=== PATIENT | female | born 1930 | race Caucasian/White ===

== ENCOUNTER 2017-01-30 12:03 | Emergency (ER) | payer MEDICAID, MEDICARE ==
[~2017-01-30] VITALS: Ht 162.6 cm; Wt 74.8 kg
[2017-01-30] MEDS ORDERED: ASPI-496 PO (13:18)
[2017-01-30] MEDS ORDERED: SIMV20TA3 PO (13:18)
[2017-01-30] MEDS ORDERED: DOXY100C15 PO (13:18)
[2017-01-30] MEDS ORDERED: FLUT1DIS3 INH (13:18)
[2017-01-30] MEDS ORDERED: TRAM50TA2 PO (13:18)
[2017-01-30] MEDS ORDERED: TIOT18CA INH (13:18)
[2017-01-30] MEDS ORDERED: AMOX1TAB64 PO (13:18)
[2017-01-30 15:24] VITALS: BP 142/87
== END 2017-01-30 16:01 | disposition home or self-care (01) ==
LOC: ED 15:55
DX: K40.91 Unilateral inguinal hernia, without obstruction or gangrene, recurrent (principal); E78.00 Pure hypercholesterolemia, unspecified; I25.2 Old myocardial infarction
CPT/HCPCS: 76857; 81003; 99285

== ENCOUNTER 2017-03-27 11:04 | Inpatient (IN) | payer MEDICARE ==
[~2017-03-27] VITALS: Ht 175.3 cm; Wt 75.2 kg
[~2017-03-27 11:04] MED LIST: AMOX1TAB64 PO; ASPI-496 PO; DOXY100C15 PO; FLUT1DIS3 INH; SIMV20TA3 PO; TIOT18CA INH; TRAM50TA2 PO
[2017-03-27] MEDS ORDERED: SODIUM CHLORIDE FLUSH 10ML SYR IVF ONE (12:00)
[2017-03-27] MEDS ORDERED: ASPIRIN 81 MG TABLET CHEW PO ONE (12:00)
[2017-03-27] MEDS ORDERED: ASPIRIN 81 MG TABLET CHEW ONE (12:03)
[2017-03-27] MEDS ORDERED: CEFTRIAXONE PMX 1GM/50ML 50 ML IVPB ONE (12:30)
[2017-03-27] MEDS ORDERED: AZITHROMYCIN 500 MG in SODIUM CHLORIDE 0.9% 250 ML IV ONE (12:30)
[2017-03-27 12:39] LABS: ASPARTATE AMINO TRANSFERASE 20 U/L (15-37); BLOOD UREA NITROGEN 17 mg/dL (7-18)
[2017-03-27 12:44] LABS: IS PT STATUS REG ER OR PRE ER? YES
[2017-03-27] MEDS ORDERED: CEFTRIAXONE PMX 1GM/50ML 50 ML ONE (13:24)
[2017-03-27 13:34] LABS: PATH.CAST-FLAG NOT PRESENT; SPERM-FLAG NOT PRESENT; SRC-FLAG NOT PRESENT; XTAL-FLAG NOT PRESENT; YLC-FLAG NOT PRESENT
[2017-03-27] MEDS ORDERED: OMNIPAQUE 350 MG/ML, 100ML BOTTLE ONE (15:22)
[2017-03-27] MEDS ORDERED: ENOXAPARIN 40 MG/0.4 ML SQ SCH (15:30)
[2017-03-27] MEDS ORDERED: POLYETHYLENE GLYCOL 17 GM PACKET PO PRN (15:30)
[2017-03-27] MEDS ORDERED: ACETAMINOPHEN 325 MG TABLET PO PRN (15:30)
[2017-03-27] MEDS ORDERED: CEFTRIAXONE PMX 1GM/50ML 50 ML IV SCH (15:30)
[2017-03-27] MEDS ORDERED: morphine SULFATE 10 MG/ML, 1ML IVPush PRN (15:30)
[2017-03-27] MEDS ORDERED: DOCUSATE 100 MG CAPSULE PO PRN (15:30)
[2017-03-27] MEDS ORDERED: DOXYCYCLINE 100 MG in DEXTROSE 5% 250 ML IV SCH (15:30)
[2017-03-27] MEDS ORDERED: GUAIFENESIN/DM 200-20MG, 10ML UDC PO PRN (15:30)
[2017-03-27] MEDS ORDERED: ONDANSETRON 2MG/ML, 2ML IVPush PRN (15:30)
[2017-03-27] MEDS: IPRATROPIUM 0.5 MG/2.5 ML INHA NPPB SCH ×2 (16:30→22:30)
[2017-03-27 17:06] VITALS: BP 90/62
[2017-03-27 17:44] LABS: IS PT STATUS REG ER OR PRE ER? NO
[2017-03-27] MEDS: APIXABAN 2.5 MG TABLET PO SCH ×2 (18:15→19:42)
[2017-03-27] MEDS: NS + 20MEQ KCL 1,000 ML IV SCH (19:41)
[2017-03-27 20:00] VITALS: BP 100/60
[2017-03-27] MEDS: SIMVASTATIN 20 MG TABLET PO SCH (20:05)
[2017-03-28 00:05] LABS: IS PT STATUS REG ER OR PRE ER? NO
[2017-03-28 02:00] VITALS: BP 118/74
[2017-03-28] MEDS: IPRATROPIUM 0.5 MG/2.5 ML INHA NPPB SCH ×4 (02:04→19:39)
[2017-03-28] MEDS: SENNA/DOCUSATE TABLET PO SCH (08:24)
[2017-03-28] MEDS: APIXABAN 2.5 MG TABLET PO SCH ×2 (08:25→21:17)
[2017-03-28] MEDS: ASPIRIN 81 MG TABLET EC PO SCH (08:25)
[2017-03-28 09:24] VITALS: BP 126/77
[2017-03-28 14:22] VITALS: BP 124/70
[2017-03-28] MEDS: FLUTICASONE/VILANTEROL 200-25MCG/INH INH SCH (15:15)
[2017-03-28 18:27] VITALS: BP 111/76
[2017-03-28 19:00] VITALS: BP 107/63
[2017-03-28] MEDS: SIMVASTATIN 20 MG TABLET PO SCH (21:17)
[2017-03-28] MEDS: NS + 20MEQ KCL 1,000 ML IV SCH (21:17)
[2017-03-29 02:00] VITALS: BP 121/80
[2017-03-29] MEDS: IPRATROPIUM 0.5 MG/2.5 ML INHA NPPB SCH ×3 (04:02→19:53)
[2017-03-29] MEDS: SENNA/DOCUSATE TABLET PO SCH (07:40)
[2017-03-29] MEDS: APIXABAN 2.5 MG TABLET PO SCH ×2 (07:46→20:38)
[2017-03-29] MEDS: FLUTICASONE/VILANTEROL 200-25MCG/INH INH SCH (07:46)
[2017-03-29] MEDS: ASPIRIN 81 MG TABLET EC PO SCH (07:46)
[2017-03-29 07:47] VITALS: BP 121/81
[2017-03-29 14:33] VITALS: BP 103/68
[2017-03-29 16:54] VITALS: BP 117/80
[2017-03-29] MEDS: NS + 20MEQ KCL 1,000 ML IV SCH (19:16)
[2017-03-29 19:27] VITALS: BP 125/86
[2017-03-29] MEDS: SIMVASTATIN 20 MG TABLET PO SCH (20:39)
[2017-03-30 03:44] VITALS: BP 149/90
[2017-03-30 08:45] VITALS: BP 146/94
[2017-03-30] MEDS: IPRATROPIUM 0.5 MG/2.5 ML INHA NPPB SCH ×2 (10:05→19:56)
[2017-03-30] MEDS: FLUTICASONE/VILANTEROL 200-25MCG/INH INH SCH (10:45)
[2017-03-30] MEDS: APIXABAN 2.5 MG TABLET PO SCH ×2 (10:45→20:45)
[2017-03-30] MEDS: ASPIRIN 81 MG TABLET EC PO SCH (10:45)
[2017-03-30] MEDS: SENNA/DOCUSATE TABLET PO SCH (10:46)
[2017-03-30 13:50] VITALS: BP 129/79
[2017-03-30 14:00] VITALS: BP_SYST 129; BP_SYST 138; BP_DIAS 67; BP_DIAS 79
[2017-03-30 20:06] VITALS: BP 118/64
[2017-03-30] MEDS: SIMVASTATIN 20 MG TABLET PO SCH (20:45)
[2017-03-31 01:12] VITALS: BP 132/77
[2017-03-31 07:25] VITALS: BP 151/94
[2017-03-31] MEDS: IPRATROPIUM 0.5 MG/2.5 ML INHA NPPB SCH (08:32)
[2017-03-31] MEDS: SENNA/DOCUSATE TABLET PO SCH (09:10)
[2017-03-31] MEDS: FLUTICASONE/VILANTEROL 200-25MCG/INH INH SCH (09:10)
[2017-03-31] MEDS: APIXABAN 2.5 MG TABLET PO SCH ×2 (09:10→22:01)
[2017-03-31] MEDS: ASPIRIN 81 MG TABLET EC PO SCH (09:10)
[2017-03-31 14:30] VITALS: BP 121/64
[2017-03-31] MEDS: HYDROcodone/APAP 5/325 TABLET PO PRN (14:58)
[2017-03-31] MEDS ORDERED: APIX2.5T PO (15:51)
[2017-03-31 18:28] VITALS: BP 115/77
[2017-03-31] MEDS: SIMVASTATIN 20 MG TABLET PO SCH (22:02)
[2017-04-01 01:44] VITALS: BP 148/81
[2017-04-01] MEDS: HYDROcodone/APAP 5/325 TABLET PO PRN (05:32)
[2017-04-01] MEDS: ASPIRIN 81 MG TABLET EC PO SCH (10:38)
[2017-04-01] MEDS: FLUTICASONE/VILANTEROL 200-25MCG/INH INH SCH (10:38)
[2017-04-01] MEDS: SENNA/DOCUSATE TABLET PO SCH (10:38)
[2017-04-01] MEDS: APIXABAN 2.5 MG TABLET PO SCH (10:38)
[2017-04-01 14:01] VITALS: BP 125/78
== END 2017-04-01 14:31 | DRG 175 ==
LOC: ED 13:36 → EDIP 14:59 → SUATTDRO 15:04 → 5SO 16:10 → 3NE 03-29 16:51
PROVIDERS: ADMIT Family Medicine; ATTEND Family Medicine
DX: I26.99 Other pulmonary embolism without acute cor pulmonale (principal); J18.1 Lobar pneumonia, unspecified organism; E44.0 Moderate protein-calorie malnutrition; J44.0 Chronic obstructive pulmonary disease with (acute) lower respiratory infection; R15.9 Full incontinence of feces; E78.5 Hyperlipidemia, unspecified; E78.00 Pure hypercholesterolemia, unspecified; F43.25 Adjustment disorder with mixed disturbance of emotions and conduct; K44.9 Diaphragmatic hernia without obstruction or gangrene; G31.84 Mild cognitive impairment of uncertain or unknown etiology; H91.90 Unspecified hearing loss, unspecified ear; I10 Essential (primary) hypertension; I25.2 Old myocardial infarction; Z79.82 Long term (current) use of aspirin; Z87.891 Personal history of nicotine dependence; Z99.3 Dependence on wheelchair; Z88.8 Allergy status to other drugs, medicaments and biological substances
CPT/HCPCS: 36415; 71010; 71275; 80053; 80061; 81001; 83605; 84484; 85025; 85379; 87040; 87086; 93005; 93306; 93970; 94640; 99285; J0456; J0696; J3480; J7644; Q9967; 92523-GN; J7050

== ENCOUNTER 2017-04-14 19:03 | Inpatient (IN) | payer MEDICARE ==
[~2017-04-14] VITALS: Ht 165.1 cm; Wt 79.4 kg
[~2017-04-14 19:03] MED LIST changes: +APIX2.5T PO
[2017-04-14] MEDS ORDERED: OMNIPAQUE 350 MG/ML, 100ML BOTTLE ONE (19:28)
[2017-04-14] MEDS ORDERED: SODIUM CHLORIDE 0.9% 1,000ML IVBOLUS ONE (19:30)
[2017-04-14] MEDS ORDERED: SODIUM CHLORIDE FLUSH 10ML SYR IVF ONE (19:30)
[2017-04-14 20:13] LABS: BLOOD UREA NITROGEN 67 mg/dL (7-18)
[2017-04-14 20:19] LABS: ASPARTATE AMINO TRANSFERASE 21 U/L (15-37)
[2017-04-14 20:22] LABS: IS PT STATUS REG ER OR PRE ER? YES
[2017-04-14] MEDS ORDERED: SODIUM CHLORIDE 0.9% 1,000 ML IV ONE (20:31)
[2017-04-14 20:36] LABS: DIFF TOTAL CELLS COUNTED 100 CELL DIFF
[2017-04-14 20:38] LABS: VERIFY COUNTS? YES
[2017-04-14] MEDS ORDERED: BISACODYL 10 MG SUPP PR PRN (22:00)
[2017-04-14] MEDS ORDERED: ONDANSETRON 2MG/ML, 2ML IVPush PRN (22:00)
[2017-04-14] MEDS ORDERED: HEPARIN 5,000 UNITS/ML, 1ML SQ SCH (22:00)
[2017-04-14] MEDS ORDERED: ACETAMINOPHEN 325 MG TABLET PO PRN (22:00)
[2017-04-14] MEDS ORDERED: POLYETHYLENE GLYCOL 17 GM PACKET PO PRN (22:00)
[2017-04-14] MEDS: SIMVASTATIN 20 MG TABLET PO SCH (22:00)
[2017-04-14] MEDS ORDERED: ONDANSETRON 2MG/ML, 2ML ONE (22:03)
[2017-04-14] MEDS: SODIUM CHLORIDE 0.9% 1,000 ML IV SCH (22:07)
[2017-04-14] MEDS: [UNRECOGNIZED DRUG - REMARK] MC SCH (23:30)
[2017-04-15] VITALS: BP 101/69
[2017-04-15] MEDS: APIXABAN 2.5 MG TABLET PO SCH ×3 (01:08→22:45)
[2017-04-15] MEDS: SODIUM CHLORIDE 0.9% 1,000 ML IV SCH ×2 (01:09→16:04)
[2017-04-15 03:03] VITALS: BP 107/75
[2017-04-15 05:19] LABS: ASPARTATE AMINO TRANSFERASE 13 U/L (15-37); BLOOD UREA NITROGEN 69 mg/dL (7-18)
[2017-04-15] MEDS: METRONIDAZOLE PMX 500MG/100ML 100 ML IV SCH ×2 (06:27→16:04)
[2017-04-15 06:29] VITALS: BP 102/69
[2017-04-15] MEDS: [UNRECOGNIZED DRUG - REMARK] MC SCH ×2 (07:30→15:30)
[2017-04-15] MEDS: IPRATROPIUM 0.5 MG/2.5 ML INHA NPPB SCH ×3 (09:00→21:00)
[2017-04-15] MEDS: SENNA/DOCUSATE TABLET PO SCH (09:00)
[2017-04-15] MEDS: FLUTICASONE/VILANTEROL 100-25MCG/INH INH SCH (09:00)
[2017-04-15 12:43] VITALS: BP 109/81
[2017-04-15] MEDS: VANCOMYCIN 50 MG/ML ORAL SUSP PO SCH ×2 (16:03→22:44)
[2017-04-15 19:08] VITALS: BP 95/66
[2017-04-15] MEDS ORDERED: BISACODYL 10 MG SUPP PR PRN (20:00)
[2017-04-15] MEDS ORDERED: ONDANSETRON 2MG/ML, 2ML IVPush PRN (20:00)
[2017-04-15] MEDS ORDERED: ACETAMINOPHEN 325 MG TABLET PO PRN (20:00)
[2017-04-15] MEDS ORDERED: POLYETHYLENE GLYCOL 17 GM PACKET PO PRN (20:00)
[2017-04-15] MEDS: SIMVASTATIN 20 MG TABLET PO SCH (22:45)
[2017-04-16] MEDS: METRONIDAZOLE PMX 500MG/100ML 100 ML IV SCH ×4 (01:02→23:00)
[2017-04-16] MEDS: SODIUM CHLORIDE 0.9% 1,000 ML IV SCH ×3 (01:03→19:11)
[2017-04-16 02:25] VITALS: BP_SYST 149; BP_SYST 80; BP_DIAS 56; BP_DIAS 71
[2017-04-16] MEDS: IPRATROPIUM 0.5 MG/2.5 ML INHA NPPB SCH ×4 (03:00→21:00)
[2017-04-16] MEDS: VANCOMYCIN 50 MG/ML ORAL SUSP PO SCH ×4 (05:07→21:22)
[2017-04-16 06:30] LABS: BLOOD UREA NITROGEN 70 mg/dL (7-18)
[2017-04-16 08:13] VITALS: BP 90/60
[2017-04-16] MEDS: SENNA/DOCUSATE TABLET PO SCH (08:14)
[2017-04-16] MEDS: APIXABAN 2.5 MG TABLET PO SCH ×2 (08:21→21:22)
[2017-04-16] MEDS: FLUTICASONE/VILANTEROL 100-25MCG/INH INH SCH (09:38)
[2017-04-16 13:00] VITALS: BP 94/66
[2017-04-16 20:27] VITALS: BP 106/73
[2017-04-16] MEDS: SIMVASTATIN 20 MG TABLET PO SCH (21:22)
[2017-04-17 00:21] VITALS: BP 100/63
[2017-04-17] MEDS: IPRATROPIUM 0.5 MG/2.5 ML INHA NPPB SCH ×4 (02:53→20:11)
[2017-04-17] MEDS: VANCOMYCIN 50 MG/ML ORAL SUSP PO SCH ×3 (03:54→17:59)
[2017-04-17] MEDS: SODIUM CHLORIDE 0.9% 1,000 ML IV SCH (03:54)
[2017-04-17 06:01] LABS: BLOOD UREA NITROGEN 69 mg/dL (7-18)
[2017-04-17 07:30] VITALS: BP 97/60
[2017-04-17] MEDS: SENNA/DOCUSATE TABLET PO SCH (08:33)
[2017-04-17] MEDS: FLUTICASONE/VILANTEROL 100-25MCG/INH INH SCH (08:37)
[2017-04-17] MEDS: METRONIDAZOLE PMX 500MG/100ML 100 ML IV SCH ×2 (08:37→17:59)
[2017-04-17] MEDS: APIXABAN 2.5 MG TABLET PO SCH ×2 (08:37→20:32)
[2017-04-17] MEDS: LACTATED RINGERS 1,000 ML IV SCH ×2 (11:29→22:13)
[2017-04-17] MEDS: SODIUM BICARBONATE 650 MG TABLET PO SCH ×2 (11:29→20:32)
[2017-04-17 12:16] VITALS: BP 91/64
[2017-04-17 13:52] VITALS: BP 105/72
[2017-04-17 20:00] VITALS: BP 117/68
[2017-04-17] MEDS: SIMVASTATIN 20 MG TABLET PO SCH (20:32)
[2017-04-18] MEDS: VANCOMYCIN 50 MG/ML ORAL SUSP PO SCH ×4 (00:09→17:40)
[2017-04-18] MEDS: METRONIDAZOLE PMX 500MG/100ML 100 ML IV SCH ×3 (01:11→17:40)
[2017-04-18 02:00] VITALS: BP 94/63
[2017-04-18] MEDS: IPRATROPIUM 0.5 MG/2.5 ML INHA NPPB SCH ×4 (03:00→19:52)
[2017-04-18 06:08] LABS: BLOOD UREA NITROGEN 63 mg/dL (7-18)
[2017-04-18 08:53] VITALS: BP 118/61
[2017-04-18] MEDS: SENNA/DOCUSATE TABLET PO SCH (09:00)
[2017-04-18] MEDS ORDERED: MAGNESIUM SULFATE PMX 2GM/50ML 50 ML IV ONE (09:30)
[2017-04-18] MEDS: ONDANSETRON 2MG/ML, 2ML IVPush PRN (09:38)
[2017-04-18 10:54] VITALS: BP 131/91
[2017-04-18] MEDS ORDERED: FUROSEMIDE 40 MG/4 ML IV ONE (11:00)
[2017-04-18] MEDS: FLUTICASONE/VILANTEROL 100-25MCG/INH INH SCH (11:23)
[2017-04-18] MEDS: APIXABAN 2.5 MG TABLET PO SCH ×2 (11:23→20:38)
[2017-04-18] MEDS: SODIUM BICARBONATE 650 MG TABLET PO SCH ×2 (11:24→20:38)
[2017-04-18 12:35] VITALS: BP 95/63
[2017-04-18] MEDS: methylPREDNISolone SOD SUCC 125 MG/2 ML IVPush SCH ×2 (13:07→20:38)
[2017-04-18] MEDS: CEFTRIAXONE PMX 1GM/50ML 50 ML IV SCH (13:08)
[2017-04-18 20:05] VITALS: BP 102/68
[2017-04-18] MEDS: SIMVASTATIN 20 MG TABLET PO SCH (20:38)
[2017-04-18] MEDS ORDERED: LIDOCAINE 1%, 20ML ONE (20:54)
[2017-04-19] MEDS: METRONIDAZOLE PMX 500MG/100ML 100 ML IV SCH ×3 (00:55→18:47)
[2017-04-19] MEDS: VANCOMYCIN 50 MG/ML ORAL SUSP PO SCH ×5 (00:55→23:49)
[2017-04-19 02:57] VITALS: BP 144/85
[2017-04-19] MEDS: IPRATROPIUM 0.5 MG/2.5 ML INHA NPPB SCH ×5 (03:00→21:30)
[2017-04-19 05:28] LABS: BLOOD UREA NITROGEN 60 mg/dL (7-18)
[2017-04-19 08:22] VITALS: BP 135/87
[2017-04-19] MEDS: SENNA/DOCUSATE TABLET PO SCH (09:00)
[2017-04-19] MEDS: FLUTICASONE/VILANTEROL 100-25MCG/INH INH SCH (09:00)
[2017-04-19 12:52] VITALS: BP 115/76
[2017-04-19] MEDS: SODIUM BICARBONATE 650 MG TABLET PO SCH ×2 (13:16→20:11)
[2017-04-19] MEDS: APIXABAN 2.5 MG TABLET PO SCH ×2 (13:16→20:11)
[2017-04-19] MEDS: CEFTRIAXONE PMX 1GM/50ML 50 ML IV SCH (13:16)
[2017-04-19] MEDS ORDERED: methylPREDNISolone SOD SUCC 125 MG/2 ML IVPush SCH (18:30)
[2017-04-19 19:45] VITALS: BP 111/77
[2017-04-19] MEDS: methylPREDNISolone SOD SUCC 40 MG/ML IVPush SCH (20:10)
[2017-04-19] MEDS: SIMVASTATIN 20 MG TABLET PO SCH (20:11)
[2017-04-19 22:17] LABS: ABG COLLECTION SITE RIGHT RADIAL; COLLATERAL CIRCULATION TESTING NORMAL
[2017-04-20] MEDS: METRONIDAZOLE PMX 500MG/100ML 100 ML IV SCH ×2 (02:35→14:13)
[2017-04-20 03:08] VITALS: BP 119/74
[2017-04-20] MEDS: IPRATROPIUM 0.5 MG/2.5 ML INHA NPPB SCH ×4 (03:30→20:45)
[2017-04-20] MEDS ORDERED: ALBUTEROL/IPRATROPIUM 2.5MG/0.5MG, 3 ML ONE (03:34)
[2017-04-20] MEDS: methylPREDNISolone SOD SUCC 40 MG/ML IVPush SCH ×3 (04:24→22:48)
[2017-04-20] MEDS: VANCOMYCIN 50 MG/ML ORAL SUSP PO SCH ×4 (05:45→23:30)
[2017-04-20 06:56] LABS: BLOOD UREA NITROGEN 57 mg/dL (7-18)
[2017-04-20 07:05] LABS: DIFF TOTAL CELLS COUNTED 100 CELL DIFF
[2017-04-20 07:30] VITALS: BP 122/77
[2017-04-20 07:47] LABS: VERIFY COUNTS? YES
[2017-04-20] MEDS: SENNA/DOCUSATE TABLET PO SCH (09:00)
[2017-04-20] MEDS: FLUTICASONE/VILANTEROL 100-25MCG/INH INH SCH (09:00)
[2017-04-20] MEDS: APIXABAN 2.5 MG TABLET PO SCH ×2 (09:40→20:58)
[2017-04-20] MEDS: SODIUM BICARBONATE 650 MG TABLET PO SCH ×2 (09:40→20:59)
[2017-04-20] MEDS: CEFTRIAXONE PMX 1GM/50ML 50 ML IV SCH (14:13)
[2017-04-20 14:55] VITALS: BP 116/81
[2017-04-20] MEDS: DOXYCYCLINE 100 MG in DEXTROSE 5% 250 ML IV SCH (16:30)
[2017-04-20 19:50] VITALS: BP 106/65
[2017-04-20] MEDS: SIMVASTATIN 20 MG TABLET PO SCH (21:00)
[2017-04-21 01:29] VITALS: BP 112/69
[2017-04-21] MEDS: IPRATROPIUM 0.5 MG/2.5 ML INHA NPPB SCH ×4 (02:36→19:45)
[2017-04-21] MEDS: VANCOMYCIN 50 MG/ML ORAL SUSP PO SCH ×3 (05:26→17:30)
[2017-04-21] MEDS: methylPREDNISolone SOD SUCC 40 MG/ML IVPush SCH ×2 (05:32→15:07)
[2017-04-21] MEDS: DOXYCYCLINE 100 MG in DEXTROSE 5% 250 ML IV SCH ×2 (05:32→16:30)
[2017-04-21 05:51] LABS: BLOOD UREA NITROGEN 56 mg/dL (7-18)
[2017-04-21 07:15] VITALS: BP 131/87
[2017-04-21] MEDS: APIXABAN 2.5 MG TABLET PO SCH ×2 (09:00→20:44)
[2017-04-21] MEDS: SENNA/DOCUSATE TABLET PO SCH (09:00)
[2017-04-21] MEDS: FLUTICASONE/VILANTEROL 100-25MCG/INH INH SCH (09:00)
[2017-04-21] MEDS: SODIUM BICARBONATE 650 MG TABLET PO SCH ×2 (09:00→20:44)
[2017-04-21 09:57] LABS: ABG COLLECTION SITE RIGHT BRACHIAL
[2017-04-21] MEDS: CEFTRIAXONE PMX 1GM/50ML 50 ML IV SCH (11:00)
[2017-04-21 14:08] VITALS: BP 122/85
[2017-04-21] MEDS ORDERED: POTASSIUM CHLORIDE 40 MEQ in SODIUM CHLORIDE 0.9% 500 ML IV ONE (14:30)
[2017-04-21 20:32] VITALS: BP 121/75
[2017-04-21] MEDS: DOXYCYCLINE 100MG TABLET PO SCH (20:44)
[2017-04-21] MEDS: SIMVASTATIN 20 MG TABLET PO SCH (20:44)
[2017-04-22] MEDS: VANCOMYCIN 50 MG/ML ORAL SUSP PO SCH ×5 (00:07→22:53)
[2017-04-22] MEDS: methylPREDNISolone SOD SUCC 40 MG/ML IVPush SCH ×3 (00:07→16:58)
[2017-04-22] MEDS: IPRATROPIUM 0.5 MG/2.5 ML INHA NPPB SCH ×4 (02:25→19:46)
[2017-04-22 03:19] VITALS: BP 122/80
[2017-04-22 05:01] LABS: BLOOD UREA NITROGEN 58 mg/dL (7-18)
[2017-04-22 06:20] VITALS: BP 118/72
[2017-04-22] MEDS: SODIUM BICARBONATE 650 MG TABLET PO SCH ×2 (08:48→21:02)
[2017-04-22] MEDS: FLUTICASONE/VILANTEROL 100-25MCG/INH INH SCH (08:48)
[2017-04-22] MEDS: DOXYCYCLINE 100MG TABLET PO SCH ×2 (08:48→21:02)
[2017-04-22] MEDS: SENNA/DOCUSATE TABLET PO SCH (08:49)
[2017-04-22] MEDS: APIXABAN 2.5 MG TABLET PO SCH ×2 (09:00→21:02)
[2017-04-22] MEDS: CEFTRIAXONE PMX 1GM/50ML 50 ML IV SCH (11:43)
[2017-04-22] MEDS ORDERED: MAGNESIUM SULFATE PMX 2GM/50ML 50 ML IV ONE (13:30)
[2017-04-22 14:49] VITALS: BP 109/66
[2017-04-22] MEDS ORDERED: FUROSEMIDE 40 MG/4 ML IV STA (15:07)
[2017-04-22] MEDS ORDERED: FUROSEMIDE 40 MG/4 ML ONE (15:09)
[2017-04-22] MEDS: ONDANSETRON 2MG/ML, 2ML IVPush PRN ×2 (16:58→22:53)
[2017-04-22] MEDS ORDERED: LIDOCAINE 1%, 20ML ONE (17:14)
[2017-04-22 18:48] VITALS: BP 113/70
[2017-04-22] MEDS ORDERED: DILTIAZEM 5 MG/ML, 5ML IVPush ONE (19:30)
[2017-04-22] MEDS: SIMVASTATIN 20 MG TABLET PO SCH (21:02)
[2017-04-23 01:22] VITALS: BP 114/77
[2017-04-23] MEDS: methylPREDNISolone SOD SUCC 40 MG/ML IVPush SCH ×3 (01:53→17:03)
[2017-04-23] MEDS: IPRATROPIUM 0.5 MG/2.5 ML INHA NPPB SCH ×3 (02:31→08:42)
[2017-04-23] MEDS: VANCOMYCIN 50 MG/ML ORAL SUSP PO SCH ×3 (06:20→17:03)
[2017-04-23 06:21] LABS: BLOOD UREA NITROGEN 60 mg/dL (7-18)
[2017-04-23 07:16] VITALS: BP 114/70
[2017-04-23] MEDS: FLUTICASONE/VILANTEROL 100-25MCG/INH INH SCH (08:22)
[2017-04-23] MEDS: DOXYCYCLINE 100MG TABLET PO SCH ×2 (08:22→22:08)
[2017-04-23] MEDS: SENNA/DOCUSATE TABLET PO SCH (08:22)
[2017-04-23] MEDS: APIXABAN 2.5 MG TABLET PO SCH ×2 (08:22→22:08)
[2017-04-23] MEDS: SODIUM BICARBONATE 650 MG TABLET PO SCH ×2 (08:22→22:07)
[2017-04-23] MEDS ORDERED: DILTIAZEM 5 MG/ML, 5ML ONE (09:36)
[2017-04-23] MEDS ORDERED: ALBUTEROL/IPRATROPIUM 2.5MG/0.5MG, 3 ML ONE (09:50)
[2017-04-23] MEDS: ALBUTEROL/IPRATROPIUM 2.5MG/0.5MG, 3 ML NPPB SCH ×3 (09:55→19:51)
[2017-04-23] MEDS ORDERED: DILTIAZEM 5 MG/ML, 5ML IVPush ONE (10:00)
[2017-04-23] MEDS: CEFTRIAXONE PMX 1GM/50ML 50 ML IV SCH (11:09)
[2017-04-23 12:12] LABS: IS PT STATUS REG ER OR PRE ER? NO
[2017-04-23 13:40] VITALS: BP 99/65
[2017-04-23 16:31] LABS: IS PT STATUS REG ER OR PRE ER? NO
[2017-04-23 18:27] VITALS: BP 95/62
[2017-04-23 21:38] LABS: IS PT STATUS REG ER OR PRE ER? NO
[2017-04-23] MEDS: SIMVASTATIN 20 MG TABLET PO SCH (22:08)
[2017-04-23 23:23] VITALS: BP 101/66
[2017-04-24] MEDS: methylPREDNISolone SOD SUCC 40 MG/ML IVPush SCH ×4 (00:13→23:45)
[2017-04-24] MEDS: VANCOMYCIN 50 MG/ML ORAL SUSP PO SCH ×4 (00:14→20:53)
[2017-04-24 01:24] VITALS: BP 101/67
[2017-04-24 06:23] LABS: BLOOD UREA NITROGEN 55 mg/dL (7-18)
[2017-04-24 07:56] VITALS: BP 135/80
[2017-04-24] MEDS: SODIUM BICARBONATE 650 MG TABLET PO SCH ×2 (08:14→20:54)
[2017-04-24] MEDS: DOXYCYCLINE 100MG TABLET PO SCH (08:14)
[2017-04-24] MEDS: APIXABAN 2.5 MG TABLET PO SCH ×2 (08:14→20:53)
[2017-04-24] MEDS: FLUTICASONE/VILANTEROL 100-25MCG/INH INH SCH (08:15)
[2017-04-24] MEDS: SENNA/DOCUSATE TABLET PO SCH (08:16)
[2017-04-24] MEDS: ALBUTEROL/IPRATROPIUM 2.5MG/0.5MG, 3 ML NPPB SCH ×4 (09:00→19:47)
[2017-04-24] MEDS ORDERED: FUROSEMIDE 20 MG/2 ML IV SCH (11:00)
[2017-04-24] MEDS ORDERED: OMNIPAQUE 350 MG/ML, 150 ML BOTTLE ONE (12:44)
[2017-04-24] MEDS: CEFTRIAXONE PMX 1GM/50ML 50 ML IV SCH (12:54)
[2017-04-24 12:57] VITALS: BP 108/58
[2017-04-24 14:51] VITALS: BP 94/65
[2017-04-24] MEDS: CHOLESTYRAMINE 4GM PACKET PO SCH ×2 (16:44→20:54)
[2017-04-24] MEDS: LACTOBACILLUS CHEW TABLET PO SCH ×2 (16:44→20:53)
[2017-04-24 20:03] VITALS: BP 80/60
[2017-04-24] MEDS: FUROSEMIDE 20 MG/2 ML IV SCH (20:53)
[2017-04-24] MEDS: SIMVASTATIN 20 MG TABLET PO SCH (20:54)
[2017-04-24] MEDS ORDERED: CHOLESTYRAMINE 4GM PACKET PO SCH (21:00)
[2017-04-25 01:38] VITALS: BP 106/69
[2017-04-25] MEDS: VANCOMYCIN 50 MG/ML ORAL SUSP PO SCH ×4 (03:13→21:34)
[2017-04-25] MEDS: LACTOBACILLUS CHEW TABLET PO SCH ×4 (06:04→21:32)
[2017-04-25 06:13] LABS: ASPARTATE AMINO TRANSFERASE 15 U/L (15-37); BLOOD UREA NITROGEN 60 mg/dL (7-18)
[2017-04-25 06:55] VITALS: BP 100/72
[2017-04-25] MEDS: ALBUTEROL/IPRATROPIUM 2.5MG/0.5MG, 3 ML NPPB SCH ×4 (07:35→20:00)
[2017-04-25] MEDS: SENNA/DOCUSATE TABLET PO SCH (08:16)
[2017-04-25] MEDS: methylPREDNISolone SOD SUCC 40 MG/ML IVPush SCH ×2 (08:26→21:34)
[2017-04-25] MEDS: FLUTICASONE/VILANTEROL 100-25MCG/INH INH SCH (08:26)
[2017-04-25] MEDS: SODIUM BICARBONATE 650 MG TABLET PO SCH ×2 (08:27→21:32)
[2017-04-25] MEDS: APIXABAN 2.5 MG TABLET PO SCH ×2 (08:27→21:32)
[2017-04-25] MEDS: FUROSEMIDE 20 MG/2 ML IV SCH ×2 (08:27→21:33)
[2017-04-25] MEDS: CHOLESTYRAMINE 4GM PACKET PO SCH ×2 (10:18→21:00)
[2017-04-25 15:34] VITALS: BP 107/70
[2017-04-25 18:44] VITALS: BP 117/75
[2017-04-25] MEDS: SIMVASTATIN 20 MG TABLET PO SCH (21:32)
[2017-04-26 01:04] VITALS: BP 99/65
[2017-04-26] MEDS: VANCOMYCIN 50 MG/ML ORAL SUSP PO SCH ×3 (02:59→15:12)
[2017-04-26] MEDS: LACTOBACILLUS CHEW TABLET PO SCH ×4 (05:27→21:31)
[2017-04-26 06:39] LABS: ASPARTATE AMINO TRANSFERASE 9 U/L (15-37); BLOOD UREA NITROGEN 55 mg/dL (7-18)
[2017-04-26 07:29] VITALS: BP 113/80
[2017-04-26] MEDS: ALBUTEROL/IPRATROPIUM 2.5MG/0.5MG, 3 ML NPPB SCH ×5 (07:37→20:00)
[2017-04-26] MEDS: methylPREDNISolone SOD SUCC 40 MG/ML IVPush SCH (08:00)
[2017-04-26] MEDS ORDERED: MAGNESIUM SULFATE PMX 4GM/100M 100 ML IV ONE (08:30)
[2017-04-26] MEDS: SODIUM BICARBONATE 650 MG TABLET PO SCH (09:00)
[2017-04-26] MEDS: SENNA/DOCUSATE TABLET PO SCH (09:00)
[2017-04-26] MEDS: FUROSEMIDE 20 MG/2 ML IV SCH (09:00)
[2017-04-26] MEDS ORDERED: FUROSEMIDE 40 MG TABLET ONE (09:37)
[2017-04-26] MEDS: POTASSIUM CHLORIDE 20 MEQ TAB.ER.PRT PO SCH ×2 (09:52→15:12)
[2017-04-26] MEDS: APIXABAN 2.5 MG TABLET PO SCH (09:53)
[2017-04-26] MEDS: FUROSEMIDE 40 MG TABLET PO SCH ×2 (09:53→16:35)
[2017-04-26] MEDS: FLUTICASONE/VILANTEROL 100-25MCG/INH INH SCH (09:53)
[2017-04-26] MEDS: CHOLESTYRAMINE 4GM PACKET PO SCH ×2 (12:01→21:00)
[2017-04-26 13:28] VITALS: BP 101/68
[2017-04-26] MEDS ORDERED: FUROSEMIDE 40 MG TABLET PO SCH (17:00)
[2017-04-26 20:42] VITALS: BP 100/66
[2017-04-26] MEDS: APIXABAN 5 MG TABLET PO SCH (21:31)
[2017-04-26] MEDS: SIMVASTATIN 20 MG TABLET PO SCH (21:31)
[2017-04-27 02:08] VITALS: BP 113/75
[2017-04-27] MEDS: LACTOBACILLUS CHEW TABLET PO SCH ×4 (06:00→20:35)
[2017-04-27 06:19] LABS: BLOOD UREA NITROGEN 51 mg/dL (7-18)
[2017-04-27] MEDS: ALBUTEROL/IPRATROPIUM 2.5MG/0.5MG, 3 ML NPPB SCH ×4 (06:50→20:00)
[2017-04-27 06:52] VITALS: BP 111/73
[2017-04-27] MEDS: FUROSEMIDE 40 MG TABLET PO SCH (08:28)
[2017-04-27] MEDS: FLUTICASONE/VILANTEROL 100-25MCG/INH INH SCH (08:28)
[2017-04-27] MEDS: APIXABAN 5 MG TABLET PO SCH ×2 (08:28→20:35)
[2017-04-27] MEDS: CHOLESTYRAMINE 4GM PACKET PO SCH ×2 (08:28→20:36)
[2017-04-27] MEDS: SENNA/DOCUSATE TABLET PO SCH (08:29)
[2017-04-27 12:17] VITALS: BP 108/72
[2017-04-27] MEDS: NEUTRA PHOS K 250 MG TABLET PO SCH ×3 (15:20→20:35)
[2017-04-27] MEDS: VANCOMYCIN 50 MG/ML ORAL SUSP PO SCH ×2 (15:20→20:35)
[2017-04-27] MEDS: FUROSEMIDE 80 MG TABLET PO SCH (16:27)
[2017-04-27 19:19] VITALS: BP 104/60
[2017-04-27] MEDS: SIMVASTATIN 20 MG TABLET PO SCH (20:35)
[2017-04-28 01:40] VITALS: BP 106/63
[2017-04-28] MEDS: VANCOMYCIN 50 MG/ML ORAL SUSP PO SCH ×2 (01:58→09:16)
[2017-04-28] MEDS: LACTOBACILLUS CHEW TABLET PO SCH ×4 (05:10→20:21)
[2017-04-28 06:17] LABS: ASPARTATE AMINO TRANSFERASE 10 U/L (15-37); BLOOD UREA NITROGEN 54 mg/dL (7-18)
[2017-04-28] MEDS: ALBUTEROL/IPRATROPIUM 2.5MG/0.5MG, 3 ML NPPB SCH ×4 (07:10→19:52)
[2017-04-28] MEDS: SENNA/DOCUSATE TABLET PO SCH (07:26)
[2017-04-28 08:00] VITALS: BP_SYST 101; BP_SYST 155; BP_DIAS 64; BP_DIAS 78
[2017-04-28] MEDS: APIXABAN 5 MG TABLET PO SCH ×2 (09:16→20:21)
[2017-04-28] MEDS: NEUTRA PHOS K 250 MG TABLET PO SCH (09:16)
[2017-04-28] MEDS: FUROSEMIDE 80 MG TABLET PO SCH ×2 (09:16→17:00)
[2017-04-28] MEDS: CHOLESTYRAMINE 4GM PACKET PO SCH ×2 (09:16→20:21)
[2017-04-28] MEDS: FLUTICASONE/VILANTEROL 100-25MCG/INH INH SCH (11:27)
[2017-04-28 14:27] VITALS: BP 98/67
[2017-04-28 19:25] VITALS: BP 93/58
[2017-04-28] MEDS: SIMVASTATIN 20 MG TABLET PO SCH (20:29)
[2017-04-29 01:56] VITALS: BP 99/60
[2017-04-29 05:12] LABS: ASPARTATE AMINO TRANSFERASE 14 U/L (15-37); BLOOD UREA NITROGEN 50 mg/dL (7-18)
[2017-04-29] MEDS: LACTOBACILLUS CHEW TABLET PO SCH ×4 (05:26→20:33)
[2017-04-29] MEDS: ALBUTEROL/IPRATROPIUM 2.5MG/0.5MG, 3 ML NPPB SCH ×4 (06:48→19:59)
[2017-04-29 07:21] VITALS: BP 101/65
[2017-04-29] MEDS: FUROSEMIDE 80 MG TABLET PO SCH ×2 (08:00→18:11)
[2017-04-29] MEDS: APIXABAN 5 MG TABLET PO SCH ×2 (09:00→20:33)
[2017-04-29] MEDS: CHOLESTYRAMINE 4GM PACKET PO SCH ×2 (09:00→20:32)
[2017-04-29] MEDS: SENNA/DOCUSATE TABLET PO SCH (09:00)
[2017-04-29] MEDS: METOLAZONE 5 MG TABLET PO SCH (09:36)
[2017-04-29] MEDS: FLUTICASONE/VILANTEROL 100-25MCG/INH INH SCH (14:26)
[2017-04-29 14:30] VITALS: BP 98/78
[2017-04-29 20:26] VITALS: BP 93/60
[2017-04-29] MEDS ORDERED: MAGNESIUM SULFATE PMX 2GM/50ML 50 ML IV ONE (20:30)
[2017-04-29] MEDS: SIMVASTATIN 20 MG TABLET PO SCH (20:33)
[2017-04-30 01:00] VITALS: BP 97/66
[2017-04-30 05:35] LABS: BLOOD UREA NITROGEN 46 mg/dL (7-18)
[2017-04-30] MEDS: LACTOBACILLUS CHEW TABLET PO SCH ×4 (05:41→22:36)
[2017-04-30 07:09] VITALS: BP 103/73
[2017-04-30] MEDS: ALBUTEROL/IPRATROPIUM 2.5MG/0.5MG, 3 ML NPPB SCH ×4 (07:55→19:15)
[2017-04-30] MEDS: APIXABAN 5 MG TABLET PO SCH ×2 (08:57→22:37)
[2017-04-30] MEDS: METOLAZONE 5 MG TABLET PO SCH (08:57)
[2017-04-30] MEDS: FUROSEMIDE 80 MG TABLET PO SCH ×2 (08:58→17:06)
[2017-04-30] MEDS: FLUTICASONE/VILANTEROL 100-25MCG/INH INH SCH (08:58)
[2017-04-30] MEDS: SENNA/DOCUSATE TABLET PO SCH (08:58)
[2017-04-30] MEDS: CHOLESTYRAMINE 4GM PACKET PO SCH ×2 (09:00→21:00)
[2017-04-30 13:14] VITALS: BP 98/63
[2017-04-30 13:49] VITALS: BP 105/72
[2017-04-30] MEDS ORDERED: ACETAMINOPHEN 325 MG TABLET PO PRN (15:30)
[2017-04-30] MEDS ORDERED: BISACODYL 10 MG SUPP PR PRN (15:30)
[2017-04-30] MEDS ORDERED: POLYETHYLENE GLYCOL 17 GM PACKET PO PRN (15:30)
[2017-04-30 20:00] VITALS: BP 92/58
[2017-04-30] MEDS: SIMVASTATIN 20 MG TABLET PO SCH (22:37)
[2017-04-30 23:30] VITALS: BP_SYST 78; BP_SYST 87; BP_DIAS 37; BP_DIAS 58; BP_DIAS 64
[2017-05-01] MEDS ORDERED: MAGNESIUM SULFATE PMX 2GM/50ML 50 ML IV ONE (01:30)
[2017-05-01 02:11] VITALS: BP 85/62
[2017-05-01] MEDS: ONDANSETRON 2MG/ML, 2ML IVPush PRN (02:18)
[2017-05-01] MEDS: LACTOBACILLUS CHEW TABLET PO SCH ×4 (05:52→21:34)
[2017-05-01 07:24] LABS: BLOOD UREA NITROGEN 47 mg/dL (7-18)
[2017-05-01] MEDS: ALBUTEROL/IPRATROPIUM 2.5MG/0.5MG, 3 ML NPPB SCH ×4 (07:30→20:00)
[2017-05-01 07:32] VITALS: BP 104/54
[2017-05-01] MEDS: APIXABAN 5 MG TABLET PO SCH ×2 (08:19→21:34)
[2017-05-01] MEDS: FLUTICASONE/VILANTEROL 100-25MCG/INH INH SCH (08:19)
[2017-05-01] MEDS: SENNA/DOCUSATE TABLET PO SCH (08:19)
[2017-05-01] MEDS: FUROSEMIDE 80 MG TABLET PO SCH ×2 (08:19→17:19)
[2017-05-01] MEDS: CHOLESTYRAMINE 4GM PACKET PO SCH ×2 (08:20→21:00)
[2017-05-01] MEDS: POTASSIUM CHLORIDE 20 MEQ TAB.ER.PRT PO SCH ×2 (08:49→12:05)
[2017-05-01] MEDS ORDERED: METOLAZONE 5 MG TABLET PO SCH (09:00)
[2017-05-01 14:12] VITALS: BP 91/63
[2017-05-01 15:08] LABS: BLOOD UREA NITROGEN 43 mg/dL (7-18)
[2017-05-01 20:00] VITALS: BP 93/65
[2017-05-01] MEDS: SIMVASTATIN 20 MG TABLET PO SCH (21:34)
[2017-05-02 02:00] VITALS: BP 86/59
[2017-05-02 06:12] LABS: BLOOD UREA NITROGEN 42 mg/dL (7-18)
[2017-05-02] MEDS: LACTOBACILLUS CHEW TABLET PO SCH ×4 (06:18→20:54)
[2017-05-02] MEDS: ALBUTEROL/IPRATROPIUM 2.5MG/0.5MG, 3 ML NPPB SCH ×5 (07:15→19:19)
[2017-05-02] MEDS ORDERED: POTASSIUM CHLORIDE 20 MEQ TAB.ER.PRT PO SCH (08:00)
[2017-05-02 08:05] VITALS: BP 91/60
[2017-05-02] MEDS: FLUTICASONE/VILANTEROL 100-25MCG/INH INH SCH (08:12)
[2017-05-02] MEDS: SENNA/DOCUSATE TABLET PO SCH (08:12)
[2017-05-02] MEDS: FUROSEMIDE 80 MG TABLET PO SCH (08:12)
[2017-05-02] MEDS: APIXABAN 5 MG TABLET PO SCH ×2 (08:12→20:53)
[2017-05-02] MEDS: predniSONE 50MG TABLET PO SCH (08:13)
[2017-05-02] MEDS: CHOLESTYRAMINE 4GM PACKET PO SCH ×2 (08:24→21:02)
[2017-05-02 14:05] VITALS: BP 90/65
[2017-05-02] MEDS ORDERED: POTASSIUM CHLORIDE 20 MEQ TAB.ER.PRT PO ONE (16:00)
[2017-05-02 20:00] VITALS: BP 92/60
[2017-05-02] MEDS: SIMVASTATIN 20 MG TABLET PO SCH (20:54)
[2017-05-03] MEDS: ONDANSETRON 2MG/ML, 2ML IVPush PRN (02:55)
[2017-05-03 03:01] VITALS: BP 87/65
[2017-05-03] MEDS: LACTOBACILLUS CHEW TABLET PO SCH ×2 (06:00→11:48)
[2017-05-03 06:13] LABS: BLOOD UREA NITROGEN 44 mg/dL (7-18)
[2017-05-03] MEDS ORDERED: ALBUTEROL/IPRATROPIUM 2.5MG/0.5MG, 3 ML NPPB PRN (07:00)
[2017-05-03 08:30] VITALS: BP 105/70
[2017-05-03] MEDS: CHOLESTYRAMINE 4GM PACKET PO SCH (09:00)
[2017-05-03] MEDS: predniSONE 50MG TABLET PO SCH (09:18)
[2017-05-03] MEDS: APIXABAN 5 MG TABLET PO SCH (09:18)
[2017-05-03] MEDS: SENNA/DOCUSATE TABLET PO SCH (09:18)
[2017-05-03] MEDS: FLUTICASONE/VILANTEROL 100-25MCG/INH INH SCH (09:18)
[2017-05-03] MEDS ORDERED: VANCOMYCIN 50 MG/ML ORAL SUSP PO SCH (11:00)
[2017-05-03] MEDS ORDERED: PRED20TA PO (12:45)
[2017-05-03 14:09] VITALS: BP 83/50
== END 2017-05-03 16:25 | DRG 371 ==
LOC: ED 19:14 → EDIP 21:46 → 3NE 22:51 → 5SO 04-22 14:39 → 4WST 04-27 18:50
PROVIDERS: ADMIT Internal Medicine; ATTEND Internal Medicine
PROC: 0W993ZZ Drainage of Right Pleural Cavity, Percutaneous Approach (ICD-10-PCS; 2017-04-18)
PROC: 0W993ZZ Drainage of Right Pleural Cavity, Percutaneous Approach (ICD-10-PCS; principal; 2017-04-22)
DX: A04.7 Enterocolitis due to Clostridium difficile (principal); N17.0 Acute kidney failure with tubular necrosis; E43 Unspecified severe protein-calorie malnutrition; J96.21 Acute and chronic respiratory failure with hypoxia; J18.9 Pneumonia, unspecified organism; E87.1 Hypo-osmolality and hyponatremia; E87.2 Acidosis; J90 Pleural effusion, not elsewhere classified; J81.1 Chronic pulmonary edema; D68.69 Other thrombophilia; I13.0 Hypertensive heart and chronic kidney disease with heart failure and stage 1 through stage 4 chronic kidney disease, or unspecified chronic kidney disease; I50.30 Unspecified diastolic (congestive) heart failure; J98.11 Atelectasis; Z66 Do not resuscitate; D64.9 Anemia, unspecified; E78.00 Pure hypercholesterolemia, unspecified; I48.0 Paroxysmal atrial fibrillation; K44.9 Diaphragmatic hernia without obstruction or gangrene; K40.90 Unilateral inguinal hernia, without obstruction or gangrene, not specified as recurrent; K80.20 Calculus of gallbladder without cholecystitis without obstruction; N18.3 Chronic kidney disease, stage 3 (moderate); T50.2X5A Adverse effect of carbonic-anhydrase inhibitors, benzothiadiazides and other diuretics, initial encounter; E78.5 Hyperlipidemia, unspecified; H91.93 Unspecified hearing loss, bilateral; E83.39 Other disorders of phosphorus metabolism; E83.41 Hypermagnesemia; E83.42 Hypomagnesemia; E86.1 Hypovolemia; E87.6 Hypokalemia; I25.10 Atherosclerotic heart disease of native coronary artery without angina pectoris; I25.2 Old myocardial infarction; Z78.9 Other specified health status; Z79.01 Long term (current) use of anticoagulants; Z86.711 Personal history of pulmonary embolism; Z87.891 Personal history of nicotine dependence; Z88.8 Allergy status to other drugs, medicaments and biological substances; Z68.29 Body mass index [BMI] 29.0-29.9, adult
CPT/HCPCS: 36415; 36600; 71010; 71250; 74000; 74177; 74220; 74230; 76770; 80048; 80053; 80069; 81001; 81003; 82040; 82042; 82306; 82330; 82436; 82570; 82803; 82945; 83690; 83735; 83880; 83970; 84100; 84133; 84145; 84300; 84439; 84443; 84484; 84550; 85025; 85610; 85730; 87040; 87070; 87205; 87324; 88112; 88305; 89051; 93005; 93970; 94640; 96374; J0696; J1940; J2405; J3370; J3480; J3490; J7060; J7620; J7644; Q9967; J2920; J2930; J3475; J7030; J7040; J7120; J7512

== ENCOUNTER 2017-05-11 19:51 | Inpatient (IN) | payer MEDICARE, OTHER ==
[~2017-05-11] VITALS: Ht 165.1 cm; Wt 84.8 kg
[~2017-05-11 19:51] MED LIST changes: +PRED20TA PO
[2017-05-11] MEDS ORDERED: VANCOMYCIN PER PHARMACY IV ONE (20:30)
[2017-05-11] MEDS ORDERED: PIPERACILLIN/TAZO/PMX 3.375GM 50 ML IVPB ONE (20:30)
[2017-05-11] MEDS ORDERED: PHARMACOKINETIC CONSULTATION MC ONE (20:30)
[2017-05-11] MEDS ORDERED: SODIUM CHLORIDE 0.9% 1,000ML IVBOLUS ONE (20:30)
[2017-05-11] MEDS ORDERED: MIDAZOLAM HCL 25 MG in SODIUM CHLORIDE 0.9% 245 ML IV PRN ×2 (21:00→22:59)
[2017-05-11] MEDS ORDERED: VANCOMYCIN 1,600 MG in SODIUM CHLORIDE 0.9% 250 ML IV ONE (21:00)
[2017-05-11 21:06] LABS: ASPARTATE AMINO TRANSFERASE 18 U/L (15-37); BLOOD UREA NITROGEN 39 mg/dL (7-18)
[2017-05-11 21:10] LABS: HEMATOCRIT 43.6 % (34.6-47.8); HEMOGLOBIN 14.1 g/dL (11.7-16.4); WHITE BLOOD COUNT 6.5 x10^3/uL (3.4-10)
[2017-05-11 21:12] LABS: IS PT STATUS REG ER OR PRE ER? YES
[2017-05-11 21:41] LABS: ABG COLLECTION SITE RIGHT BRACHIAL
[2017-05-11] MEDS ORDERED: FLUT1BLS INH (22:07)
[2017-05-11] MEDS ORDERED: METR500T PO (22:07)
[2017-05-11] MEDS ORDERED: ATOR10TA9 PO (22:07)
[2017-05-11] MEDS ORDERED: ASPI-496 PO (22:07)
[2017-05-11] MEDS ORDERED: L. R1CAP2 PO (22:07)
[2017-05-11] MEDS ORDERED: DIVA125C PO (22:07)
[2017-05-11] MEDS ORDERED: FURO-93 PO (22:07)
[2017-05-11] MEDS ORDERED: POTA25TA4 PO (22:07)
[2017-05-11] MEDS ORDERED: SODIUM CHLORIDE 0.9% 1,000 ML IV ONE (22:13)
[2017-05-11] MEDS ORDERED: ONDANSETRON 2MG/ML, 2ML IVPush PRN ×2 (22:30→23:00)
[2017-05-11] MEDS ORDERED: OMNIPAQUE 350 MG/ML, 100ML BOTTLE ONE (22:46)
[2017-05-11] MEDS ORDERED: PHARMACY MAY ADJ FOR RENAL FX MC SCH (23:00)
[2017-05-11] MEDS ORDERED: morphine SULFATE 10 MG/ML, 1ML IVPush PRN (23:00)
[2017-05-11] MEDS ORDERED: VANCOMYCIN PER PHARMACY MC PRN ×2 (23:00)
[2017-05-11] MEDS ORDERED: FUROSEMIDE 40 MG/4 ML IV SCH (23:00)
[2017-05-11] MEDS ORDERED: ACETAMINOPHEN 650 MG/20.3 ML UDC NG PRN (23:00)
[2017-05-11] MEDS ORDERED: MIDAZOLAM 1 MG/ML, 5ML ONE (23:00)
[2017-05-11] MEDS ORDERED: METOCLOPRAMIDE 5 MG/ML, 2ML IVPush PRN (23:00)
[2017-05-11] MEDS ORDERED: ETOMIDATE 20 MG/10 ML ONE (23:00)
[2017-05-11] MEDS ORDERED: PROMETHAZINE 25 MG/ML, 1ML IM PRN (23:00)
[2017-05-11] MEDS: FLUTICASONE/VILANTEROL 200-25MCG/INH INH SCH (23:00)
[2017-05-11] MEDS ORDERED: Enoxaparin 1 mg/kg protocol SQ SCH (23:00)
[2017-05-11] MEDS ORDERED: BISACODYL 10 MG SUPP PR PRN (23:00)
[2017-05-11] MEDS ORDERED: LIDOCAINE-MPF 1%, 2ML ENDO PRN (23:00)
[2017-05-11] MEDS ORDERED: LORazepam 2 MG/ML, 1ML IVPush PRN (23:00)
[2017-05-11] MEDS ORDERED: ROCURONIUM 10 MG/ML ONE ×2 (23:00)
[2017-05-11] MEDS: ALBUTEROL/IPRATROPIUM 2.5MG/0.5MG, 3 ML INLINE SCH (23:00)
[2017-05-11] MEDS ORDERED: FAMOTIDINE 20 MG/2 ML IVPush SCH (23:00)
[2017-05-11] MEDS ORDERED: PIPERACILLIN/TAZO/PMX 3.375GM 50 ML ONE (23:23)
[2017-05-12 00:09] LABS: HIT LOT CART23835/KIT23844
[2017-05-12] MEDS ORDERED: PHARMACOKINETIC MONITORING MC PRN (00:30)
[2017-05-12] MEDS ORDERED: PHARMACOKINETIC CONSULTATION MC ONE (00:30)
[2017-05-12] MEDS ORDERED: SODIUM CHLORIDE 0.9%, 500ML IVBOLUS ONE ×2 (00:30→02:30)
[2017-05-12 00:33] LABS: HIT OBC PASS; HIT RESULT NEGATIVE (NEGATIVE)
[2017-05-12] MEDS: PIPERACILLIN/TAZO/PMX 3.375GM 50 ML IV SCH ×5 (00:35→23:15)
[2017-05-12] MEDS: POTASSIUM CHLORIDE 40 MEQ in SODIUM CHLORIDE 0.9% 500 ML IV SCH ×2 (00:35→23:16)
[2017-05-12] MEDS: ALBUTEROL/IPRATROPIUM 2.5MG/0.5MG, 3 ML INLINE SCH ×6 (02:20→21:50)
[2017-05-12] MEDS: NOREPINEPHRINE 4 MG in SODIUM CHLORIDE 0.9% 246 ML IV PRN ×3 (02:37→21:49)
[2017-05-12 04:14] LABS: ABG COLLECTION SITE RIGHT RADIAL; COLLATERAL CIRCULATION TESTING NORMAL
[2017-05-12 04:19] LABS: HEMATOCRIT 39.7 % (34.6-47.8); HEMOGLOBIN 13.1 g/dL (11.7-16.4); WHITE BLOOD COUNT 9.7 x10^3/uL (3.4-10)
[2017-05-12 04:27] LABS: BLOOD UREA NITROGEN 36 mg/dL (7-18)
[2017-05-12] MEDS: SODIUM CHLORIDE 0.9% 1,000 ML IV SCH ×2 (08:30→16:30)
[2017-05-12] MEDS ORDERED: SODIUM CHLORIDE 0.9% 1,000 ML IV SCH (08:30)
[2017-05-12] MEDS: PANTOPRAZOLE 40 MG IV IV SCH (10:01)
[2017-05-12] MEDS ORDERED: SODIUM CHLORIDE 0.9% 1,000ML IVBOLUS ONE (11:15)
[2017-05-12] MEDS: PROPOFOL 100 ML IV PRN (14:48)
[2017-05-12] MEDS: FLUTICASONE/VILANTEROL 200-25MCG/INH INH SCH (21:00)
[2017-05-12] MEDS: VANCOMYCIN 1,600 MG in SODIUM CHLORIDE 0.9% 250 ML IV SCH (21:31)
[2017-05-13] MEDS: ALBUTEROL/IPRATROPIUM 2.5MG/0.5MG, 3 ML INLINE SCH ×2 (02:00→06:35)
[2017-05-13] MEDS: SODIUM CHLORIDE 0.9% 1,000 ML IV SCH (03:42)
[2017-05-13 04:09] LABS: ASPARTATE AMINO TRANSFERASE 14 U/L (15-37); BLOOD UREA NITROGEN 33 mg/dL (7-18)
[2017-05-13 04:11] LABS: HEMATOCRIT 37.3 % (34.6-47.8); HEMOGLOBIN 12.1 g/dL (11.7-16.4); WHITE BLOOD COUNT 9.1 x10^3/uL (3.4-10)
[2017-05-13 04:29] LABS: ABG COLLECTION SITE RIGHT RADIAL; COLLATERAL CIRCULATION TESTING NORMAL
[2017-05-13] MEDS: PIPERACILLIN/TAZO/PMX 3.375GM 50 ML IV SCH ×3 (04:52→22:00)
[2017-05-13] MEDS: NOREPINEPHRINE 4 MG in SODIUM CHLORIDE 0.9% 246 ML IV PRN ×3 (04:52→20:18)
[2017-05-13] MEDS: PROPOFOL 100 ML IV PRN (05:46)
[2017-05-13] MEDS ORDERED: HEPARIN 5,000 UNITS/ML, 1ML IV PRN (09:00)
[2017-05-13] MEDS: HEPARIN 25,000 UNITS/500ML PMX 500 ML IV PRN (09:49)
[2017-05-13] MEDS: PANTOPRAZOLE 40 MG IV IV SCH (09:49)
[2017-05-13] MEDS ORDERED: HEPARIN 5,000 UNITS/ML, 1ML IV ONE (10:00)
[2017-05-13] MEDS ORDERED: ALBUTEROL/IPRATROPIUM 2.5MG/0.5MG, 3 ML NPPB PRN (11:30)
[2017-05-13] MEDS ORDERED: MAGNESIUM SULFATE PMX 4GM/100M 100 ML IV ONE (16:00)
[2017-05-13] MEDS ORDERED: METOCLOPRAMIDE 5 MG/ML, 2ML IVPush PRN (17:00)
[2017-05-13] MEDS ORDERED: BISACODYL 10 MG SUPP PR PRN (17:00)
[2017-05-13] MEDS ORDERED: morphine SULFATE 10 MG/ML, 1ML IVPush PRN (17:00)
[2017-05-13] MEDS ORDERED: VANCOMYCIN PER PHARMACY MC PRN (17:00)
[2017-05-13] MEDS ORDERED: PHARMACY MAY ADJ FOR RENAL FX MC SCH (17:00)
[2017-05-13] MEDS ORDERED: PHARMACOKINETIC MONITORING MC PRN (17:00)
[2017-05-13] MEDS ORDERED: PROMETHAZINE 25 MG/ML, 1ML IM PRN (17:00)
[2017-05-13] MEDS ORDERED: LIDOCAINE-MPF 1%, 2ML ENDO PRN (17:00)
[2017-05-13] MEDS ORDERED: ACETAMINOPHEN 650 MG/20.3 ML UDC NG PRN (17:00)
[2017-05-13] MEDS ORDERED: ONDANSETRON 2MG/ML, 2ML IVPush PRN (17:00)
[2017-05-13] MEDS: MICAFUNGIN 100 MG in SODIUM CHLORIDE 0.9% 100 ML IV SCH (17:03)
[2017-05-13] MEDS: LORazepam 2 MG/ML, 1ML IVPush PRN ×2 (19:43→23:32)
[2017-05-13] MEDS: FLUTICASONE/VILANTEROL 200-25MCG/INH INH SCH (21:00)
[2017-05-13] MEDS: POTASSIUM CHLORIDE 40 MEQ in SODIUM CHLORIDE 0.9% 500 ML IV SCH (23:33)
[2017-05-14] MEDS: SODIUM CHLORIDE 0.9% 1,000 ML IV SCH ×4 (01:00→21:41)
[2017-05-14] MEDS: LORazepam 2 MG/ML, 1ML IVPush PRN (02:00)
[2017-05-14 04:28] LABS: ABG COLLECTION SITE RIGHT RADIAL; COLLATERAL CIRCULATION TESTING NORMAL
[2017-05-14] MEDS: PIPERACILLIN/TAZO/PMX 3.375GM 50 ML IV SCH ×4 (04:59→21:48)
[2017-05-14] MEDS ORDERED: HALOPERIDOL 5 MG/ML IV PRN (05:00)
[2017-05-14] MEDS: NOREPINEPHRINE 4 MG in SODIUM CHLORIDE 0.9% 246 ML IV PRN ×2 (05:00→15:47)
[2017-05-14 05:05] LABS: HEMATOCRIT 34.9 % (34.6-47.8); HEMOGLOBIN 11.4 g/dL (11.7-16.4); WHITE BLOOD COUNT 8.1 x10^3/uL (3.4-10)
[2017-05-14 05:22] LABS: ASPARTATE AMINO TRANSFERASE 17 U/L (15-37); BLOOD UREA NITROGEN 28 mg/dL (7-18)
[2017-05-14] MEDS ORDERED: FLUMAZENIL 0.1 MG/1 ML, 5ML IVPush ONE (08:30)
[2017-05-14] MEDS ORDERED: ALBUMIN HUMAN 25% 100 ML IV ONE (08:30)
[2017-05-14] MEDS: PANTOPRAZOLE 40 MG IV IV SCH (08:32)
[2017-05-14] MEDS ORDERED: FUROSEMIDE 20 MG/2 ML IV ONE (09:00)
[2017-05-14] MEDS: VANCOMYCIN 1,600 MG in SODIUM CHLORIDE 0.9% 250 ML IV SCH (10:30)
[2017-05-14 11:34] LABS: ABG COLLECTION SITE RIGHT RADIAL; COLLATERAL CIRCULATION TESTING NORMAL
[2017-05-14] MEDS: MICAFUNGIN 100 MG in SODIUM CHLORIDE 0.9% 100 ML IV SCH (15:35)
[2017-05-14] MEDS: HEPARIN 25,000 UNITS/500ML PMX 500 ML IV PRN (15:40)
[2017-05-14] MEDS: FLUTICASONE/VILANTEROL 200-25MCG/INH INH SCH (20:46)
[2017-05-14] MEDS: POTASSIUM CHLORIDE 40 MEQ in SODIUM CHLORIDE 0.9% 500 ML IV SCH (23:12)
[2017-05-15 04:00] VITALS: BP 92/55
[2017-05-15 04:44] LABS: ABG COLLECTION SITE RIGHT RADIAL; COLLATERAL CIRCULATION TESTING NORMAL
[2017-05-15] MEDS: PIPERACILLIN/TAZO/PMX 3.375GM 50 ML IV SCH ×4 (04:45→22:17)
[2017-05-15 05:21] LABS: HEMATOCRIT 30.6 % (34.6-47.8); HEMOGLOBIN 9.9 g/dL (11.7-16.4); WHITE BLOOD COUNT 4.8 x10^3/uL (3.4-10)
[2017-05-15 05:22] LABS: BLOOD UREA NITROGEN 22 mg/dL (7-18)
[2017-05-15] MEDS ORDERED: DEXTROSE 50%, 50ML VIAL ONE ×2 (06:16→14:43)
[2017-05-15] MEDS ORDERED: DEXTROSE 50%, 50ML SYRINGE IVPush ONE ×2 (06:30→15:00)
[2017-05-15] MEDS ORDERED: D5%-0.45% NACL 1,000 ML IV SCH (06:30)
[2017-05-15] MEDS: NOREPINEPHRINE 4 MG in SODIUM CHLORIDE 0.9% 246 ML IV PRN ×3 (06:33→22:39)
[2017-05-15] MEDS ORDERED: POTASSIUM CHLORIDE 40 MEQ in SODIUM CHLORIDE 0.9% 100 ML IV ONE (07:30)
[2017-05-15] MEDS: PANTOPRAZOLE 40 MG IV IV SCH (07:56)
[2017-05-15] MEDS: MICAFUNGIN 100 MG in SODIUM CHLORIDE 0.9% 100 ML IV SCH (15:09)
[2017-05-15] MEDS ORDERED: SODIUM CHLORIDE 77 MEQ in DEXTROSE 10% 1,000 ML IV SCH (16:00)
[2017-05-15] MEDS: FLUTICASONE/VILANTEROL 200-25MCG/INH INH SCH (20:32)
[2017-05-15] MEDS: VANCOMYCIN 1,600 MG in SODIUM CHLORIDE 0.9% 250 ML IV SCH (20:33)
[2017-05-15] MEDS ORDERED: MAGNESIUM SULFATE PMX 2GM/50ML 50 ML IV ONE (22:30)
[2017-05-15] MEDS: HEPARIN 25,000 UNITS/500ML PMX 500 ML IV PRN (22:44)
[2017-05-15] MEDS: POTASSIUM CHLORIDE 40 MEQ in SODIUM CHLORIDE 0.9% 500 ML IV SCH (23:16)
[2017-05-16] MEDS: PIPERACILLIN/TAZO/PMX 3.375GM 50 ML IV SCH ×2 (04:25→10:24)
[2017-05-16 04:27] VITALS: BP 101/81
[2017-05-16 05:06] LABS: ABG COLLECTION SITE RIGHT RADIAL; COLLATERAL CIRCULATION TESTING NORMAL
[2017-05-16 05:21] LABS: HEMATOCRIT 34.6 % (34.6-47.8); HEMOGLOBIN 11.4 g/dL (11.7-16.4); WHITE BLOOD COUNT 5.4 x10^3/uL (3.4-10)
[2017-05-16 05:44] LABS: ASPARTATE AMINO TRANSFERASE 15 U/L (15-37); BLOOD UREA NITROGEN 21 mg/dL (7-18)
[2017-05-16] MEDS: NOREPINEPHRINE 4 MG in SODIUM CHLORIDE 0.9% 246 ML IV PRN ×3 (05:47→23:08)
[2017-05-16] MEDS: DEXTROSE 10% 1,000 ML IV SCH ×2 (06:47→17:03)
[2017-05-16] MEDS: HYDROCORTISONE 100 MG INJ. IV SCH ×3 (09:12→23:59)
[2017-05-16] MEDS: PANTOPRAZOLE 40 MG IV IV SCH (09:13)
[2017-05-16] MEDS: MICAFUNGIN 100 MG in SODIUM CHLORIDE 0.9% 100 ML IV SCH (16:03)
[2017-05-16] MEDS: FLUTICASONE/VILANTEROL 200-25MCG/INH INH SCH (20:27)
[2017-05-16] MEDS: POTASSIUM CHLORIDE 40 MEQ in SODIUM CHLORIDE 0.9% 500 ML IV SCH (23:07)
[2017-05-17] MEDS: DEXTROSE 10% 1,000 ML IV SCH ×3 (02:30→07:44)
[2017-05-17 04:37] LABS: ABG COLLECTION SITE RIGHT RADIAL; COLLATERAL CIRCULATION TESTING NORMAL
[2017-05-17 04:59] VITALS: BP 122/82
[2017-05-17 05:02] LABS: HEMATOCRIT 34.4 % (34.6-47.8); HEMOGLOBIN 11.2 g/dL (11.7-16.4); WHITE BLOOD COUNT 6.1 x10^3/uL (3.4-10)
[2017-05-17] MEDS: HEPARIN 25,000 UNITS/500ML PMX 500 ML IV PRN (06:13)
[2017-05-17] MEDS: PANTOPRAZOLE 40 MG IV IV SCH (07:59)
[2017-05-17] MEDS: HYDROCORTISONE 100 MG INJ. IV SCH (07:59)
[2017-05-17 08:25] LABS: BLOOD UREA NITROGEN 19 mg/dL (7-18)
[2017-05-17] MEDS ORDERED: morphine SULFATE 125 MG in SODIUM CHLORIDE 0.9% 237.5 ML IV PRN (11:30)
[2017-05-17] MEDS ORDERED: ATROPINE OPHTH SOLN 1%, 2ML PO PRN (12:00)
[2017-05-17] MEDS: LORazepam 2 MG/ML, 1ML IV PRN ×2 (12:48→15:53)
[2017-05-17] MEDS ORDERED: SCOPOLAMINE PATCH, 1.5MG PATCH.TD72 TD SCH (17:30)
== END 2017-05-17 23:15 | disposition expired | DRG 871 ==
LOC: ED 19:57 → EDIP 22:13 → CCU 23:45 → 3NW 05-17 12:31
PROC: 0BH17EZ Insertion of Endotracheal Airway into Trachea, Via Natural or Artificial Opening (ICD-10-PCS; principal; 2017-05-11)
PROC: 5A1945Z Respiratory Ventilation, 24-96 Consecutive Hours (ICD-10-PCS; 2017-05-11)
PROC: 0T9B70Z Drainage of Bladder with Drainage Device, Via Natural or Artificial Opening (ICD-10-PCS; 2017-05-12)
PROC: 02HV33Z Insertion of Infusion Device into Superior Vena Cava, Percutaneous Approach (ICD-10-PCS; 2017-05-12)
DX: A41.9 Sepsis, unspecified organism (principal); E43 Unspecified severe protein-calorie malnutrition; J96.01 Acute respiratory failure with hypoxia; J69.0 Pneumonitis due to inhalation of food and vomit; R65.21 Severe sepsis with septic shock; G93.40 Encephalopathy, unspecified; E87.0 Hyperosmolality and hypernatremia; B49 Unspecified mycosis; E87.2 Acidosis; Z99.11 Dependence on respirator [ventilator] status; I50.32 Chronic diastolic (congestive) heart failure; E27.40 Unspecified adrenocortical insufficiency; J98.11 Atelectasis; I11.0 Hypertensive heart disease with heart failure; D69.6 Thrombocytopenia, unspecified; D64.9 Anemia, unspecified; Z86.711 Personal history of pulmonary embolism; E87.6 Hypokalemia; E16.2 Hypoglycemia, unspecified; E78.00 Pure hypercholesterolemia, unspecified; E78.5 Hyperlipidemia, unspecified; E87.5 Hyperkalemia; H91.90 Unspecified hearing loss, unspecified ear; R23.0 Cyanosis; I95.9 Hypotension, unspecified; I25.10 Atherosclerotic heart disease of native coronary artery without angina pectoris; I48.0 Paroxysmal atrial fibrillation; K44.9 Diaphragmatic hernia without obstruction or gangrene; Y95 Nosocomial condition; Z51.5 Encounter for palliative care; Z66 Do not resuscitate; E83.42 Hypomagnesemia; Z68.31 Body mass index [BMI] 31.0-31.9, adult; I25.2 Old myocardial infarction; Z86.73 Personal history of transient ischemic attack (TIA), and cerebral infarction without residual deficits
CPT/HCPCS: 31500; 36415; 36600; 70450; 71010; 71275; 80048; 80053; 80202; 81001; 82533; 82542; 82803; 82962; 83605; 83735; 83880; 84100; 84145; 84478; 84484; 85025; 85520; 86022; 87040; 87070; 87081; 87086; 87106; 87186; 87205; 87324; 93005; 93922; 93925; 94002; 94003; 94150; 94640; 96361; 96365; 96366; J1644; J2248; J2250; J2543; J2704; J3370; J3480; J7620; P9047; Q9967; C9113; J1720; J1940; J2060; J2270; J3475; J7030; J7040; J7050; S0028